=== PATIENT | female | born 1960 | race American Indian/Alaskan Native ===

== ENCOUNTER 2021-06-11 14:35 | Emergency (ER) | payer OTHER ==
[2021-06-11 16:31] VITALS: BP 214/81
--- NOTE | 2021-06-11 16:33 | Emergency Department Report ---
ED General Adult HPI - General Chief complaint: Extremity Injury, Lower Stated complaint: HIP PAINS Time Seen by Provider: 06/11/21 16:13 Source: patient Mode of arrival: Ambulatory Limitations: No Limitations - History of Present Illness Initial comments: 61-year-old female patient with history of hypertension presents to the emergency department with complaints of left hip pain starting 2 days ago. No preceding fall, trauma, or injury. Pain radiates down the lateral aspect of the left lower extremity to the ankle. Patient experienced similar symptoms at one point many years ago. Patient currently takes Meloxicam for chronic knee pain. Patient states this medication has not helped with her hip pain. Patient does not have a local primary care provider. Denies headache, neck pain, back pain, paresthesias, numbness, weakness. Denies all other complaints at this time. - Related Data Previous Rx's Medication Instructions Recorded Last Taken Type Lidocaine [Lidoderm] 1 each TP BID #20 adh..patch 06/11/21 Unknown Rx Naproxen 250 mg PO BID #20 tablet 06/11/21 Unknown Rx Allergies Allergy/AdvReac Type Severity Reaction Status Date / Time No Known Allergies Allergy Verified 06/11/21 15:20 ED Review of Systems ROS: Stated complaint: HIP PAINS Other details as noted in HPI Other: CARDIOVASCULAR: Negative for chest pain. PULMONARY: Negative for dyspnea. GASTROINTESTINAL: Negative for abdominal pain. MUSCULOSKELETAL: Positive for left hip pain. NEUROLOGICAL: Negative for headache. INTEGUMENTARY: Negative for ecchymosis. ED Past Medical Hx - Medications Home Medications: Home Medications Medication Instructions Recorded Confirmed Last Taken Type Lidocaine [Lidoderm] 1 each TP BID #20 adh..patch 06/11/21 Unknown Rx Naproxen 250 mg PO BID #20 tablet 06/11/21 Unknown Rx ED Physical Exam - General Limitations: No Limitations - Other Other exam information: General: Awake, appropriately interactive, no acute distress. Neck: Supple. Full range of motion intact. No cervical spine tenderness. Cardiovascular: Regular rate and rhythm. (+) murmur heard best at left sternal border. Normal peripheral perfusion. Pulmonary: No respiratory distress. Clear to auscultation bilaterally. Patient is speaking normally without use of accessory muscles. Skin: No apparent rashes or lesions. Neurological: No facial asymmetry. Speech is clear. Follows commands. Patient is alert and oriented. Musculoskeletal: Patient reports pain throughout the left gluteus and left hip radiating down the lateral aspect of the left lower extremity without reproducible tenderness on palpation. No obvious deformity or dislocation. Straight leg raise in the seated position is negative. No overlying warmth, erythema, ecchymosis. Distal neurovascular and motor/sensory function intact. Psych: Cooperative. Appropriate mood and affect. ED Course Vital Signs 06/11/21 15:17 Temperature 98.7 F Pulse Rate 70 Respiratory 18 Rate Blood Pressure 211/65 [Left] O2 Sat by Pulse 96 Oximetry ED Medical Decision Making - Medical Decision Making Differential diagnosis including but not limited to: sprain, strain, fracture, contusion, dislocation, trochanteric bursitis, sciatica, avascular necrosis Patient presents to emergency department complaints of nontraumatic left hip pain. No fever, no tachycardia, no hypotension. Please see notes below regarding patient's blood pressure. Pain is reproducible with standing and walking. Suspect patient's pain is attributable to musculoskeletal causes. No clinical indication for further diagnostic work-up on an emergent basis at this time. Patient will be discharged home with appropriate symptomatic treatment and referred to both primary care provider as well as business office specialist for close outpatient follow-up. Patient expressed understanding and is agreeable to plan of care. Lifestyle modifications discussed. Strict return precautions provided. Of note, patient's blood pressure was noted to be elevated in the emergency department. Patient has a prior history of hypertension. She is compliant with her blood pressure medications. Specifically, the patient denies chest pain, shortness of breath, palpitations, syncope, headache, vision changes. Neurological exam is nonfocal and remainder of vital signs are stable. No clinical indication for further diagnostic work-up and/or emergent administration of antihypertensive medication at this time per ACEP asymptomatic hypertension guidelines. Patient has been referred to primary care provider for blood pressure recheck. Lifestyle modifications recommended. Steroids withheld due to patient's blood pressure. NSAID dose adjusted to account for u nderlying hypertension. Critical care attestation.: If time is entered above; I have spent that time in minutes in the direct care of this critically ill patient, excluding procedure time. ED Disposition Clinical Impression: Left hip pain, Elevated blood pressure reading, History of hypertension Disposition: HOME / SELF CARE / HOMELESS Is pt being admited?: No Does the pt Need Aspirin: No Condition: Stable Instructions: Hip Pain, Hypertension, Adult, [id number] Additional Instructions: Take Tylenol every 4 hours as needed for pain. Take Naprosyn twice daily with food as needed for pain. Discontinue Meloxicam while taking this medication. Apply Lidoderm patches to affected areas as needed for pain. Apply heat to affected area as needed for pain. Continue blood pressure medications as previously prescribed. Reduce your dietary sodium intake. Follow-up with primary care provider and orthopedics this week. Call tomorrow to schedule an appointment. See referral information below. Ask your business office specialist to help you arrange physical therapy. Ask your primary care provider to follow-up on your blood pressure as well as your heart murmur. Return to the emergency department immediately for new or worsening symptoms. Specifically, return to the emergency department immediately for headache, chest pain, shortness of breath, loss of consciousness, numbness, weakness, paralysis, or any other concerns. Prescriptions: Lidocaine [Lidoderm] 1 each TP BID #20 adh..patch Naproxen 250 mg PO BID #20 tablet Referrals: SYBIL ZIMMERMAN MD [Staff Physician] - 3-5 Days [facility] [Provider Group] - 3-5 Days SHARON RANDALL MD [Staff Physician] - 3-5 Days Forms: Work/School Release Form(ED) Time of Disposition: 16:44
== END 2021-06-11 17:18 | disposition home or self-care (01) ==
LOC: ED 14:35
DX: M25.552 Pain in left hip (principal); R03.0 Elevated blood-pressure reading, without diagnosis of hypertension; I10 Essential (primary) hypertension; Z79.899 Other long term (current) drug therapy
CPT/HCPCS: 99282

== ENCOUNTER 2021-06-28 09:59 | Emergency (ER) | payer SELFPAY ==
[2021-06-28 10:19] VITALS: BP 214/92
--- NOTE | 2021-06-28 10:37 | Emergency Department Report ---
ED Extremity Problem HPI - General Chief complaint: Extremity Problem,Nontraumatic Stated complaint: NUMBNESS IN LT LEG INTO FOOT CANT WALK Time Seen by Provider: 06/28/21 10:27 Source: patient Mode of arrival: Ambulatory Limitations: No Limitations - History of Present Illness Initial comments: Patient presents with a 3-week history of left leg pain. She had been seen here and told that this was sciatica. She is having increasing pain in the lateral aspect of the left ankle. She came back today because the medication represcribed were not working. She states that we give her Naprosyn and a patch. That does not help. She is still complaining of pain that starts in the left hip, radiates down the lateral aspect and posterior aspect the left leg, and seems to be worse in the lateral aspect of the left ankle. This is just proximal to the malleolus. There is no direct trauma. She has had no fevers or chills per there is no cough congestion. She has no chest pain. There has not been any swelling. She has no calf pain. Patient has had no history of recent travel. The pain is described as an aching and burning pain. She has no other complaints. She has never had symptoms like this before. - Related Data Previous Rx's Medication Instructions Recorded Last Taken Type Lidocaine [Lidoderm] 1 each TP BID #20 adh..patch 06/11/21 Unknown Rx Diclofenac Submicronized 35 mg PO TID #20 capsule 06/28/21 Unknown Rx [Diclofenac] Allergies Allergy/AdvReac Type Severity Reaction Status Date / Time No Known Allergies Allergy Verified 06/11/21 15:20 ED Review of Systems ROS: Stated complaint: NUMBNESS IN LT LEG INTO FOOT CANT WALK Other details as noted in HPI Comment: All other systems reviewed and negative Constitutional: denies: fever ENT: denies: throat pain Respiratory: denies: cough Cardiovascular: denies: chest pain Endocrine: denies: unexplained weight gain Gastrointestinal: denies: abdominal pain Genitourinary: denies: dysuria Musculoskeletal: denies: back pain Skin: denies: rash Neurological: denies: weakness, numbness Hematological/Lymphatic: denies: easy bruising ED Past Medical Hx - Past Medical History Previous Medical History?: Yes Hx Hypertension: Yes Hx Asthma: Yes Additional medical history: Sciatic nerve problems - Surgical History Past Surgical History?: No - Family History Family history: no significant - Social History Smoking Status: Never Smoker - Medications Home Medications: Home Medications Medication Instructions Recorded Confirmed Last Taken Type Lidocaine [Lidoderm] 1 each TP BID #20 adh..patch 06/11/21 Unknown Rx Diclofenac Submicronized 35 mg PO TID #20 capsule 06/28/21 Unknown Rx [Diclofenac] ED Physical Exam - General Limitations: No Limitations, Other (Pulse ox was noted and normal. She is not hypoxic.) General appearance: alert, in no apparent distress - Head Head exam: Present: atraumatic, normocephalic, normal inspection - Eye Eye exam: Present: normal appearance, EOMI. Absent: scleral icterus - ENT ENT exam: Present: normal exam, normal external ear exam - Neck Neck exam: Present: normal inspection. Absent: meningismus - Respiratory Respiratory exam: Absent: respiratory distress - Cardiovascular Cardiovascular Exam: Absent: JVD - Extremities Exam Extremities exam: Present: normal capillary refill, other (There is tenderness with palpation over the left distal fibula. The malleolus is not tender. There is no warmth, erythema, edema, or crepitus. There is no other extremity tenderness. She states that she does have pain with palpation over the left sacroiliac joint.). Absent: pedal edema - Back Exam Back exam: Absent: CVA tenderness (R), CVA tenderness (L) - Neurological Exam Neurological exam: Present: alert, oriented X3, normal gait. Absent: CN II-XII intact, motor sensory deficit - Psychiatric Psychiatric exam: Present: normal affect, normal mood - Skin Skin exam: Present: warm, dry ED Course Vital Signs 06/28/21 10:17 Temperature 98.4 F Pulse Rate 77 Respiratory 16 Rate Blood Pressure 214/92 [Left] O2 Sat by Pulse 97 Oximetry - Reevaluation(s) Reevaluation #1: 06/28/21 10:36 X-ray was ordered. Reevaluation #2: 06/28/21 11:02 Radiographs were reviewed. These are normal. Patient was discharged. Glucose was noted. ED Medical Decision Making - Radiology Data Radiology results: image reviewed interpreted by me: Ankle x-ray showed no evidence of acute fracture or dislocation. There is no lytic lesion in the bone. There is no soft tissue swelling. These appear to be normal by my interpretation. - Medical Decision Making Patient presents secondary to left leg pain and left ankle pain. She was con cerned for some sort of bony problem. Radiographically, there is no lytic lesion. There is no pathologic fracture. She was aware that the x-rays would not show soft tissues. Regardless, there is no soft tissue swelling. Etiology for the worsening pain in the left lateral leg lower to the knee is not known. Certainly, there is no trauma. She has no fracture or dislocation. There is no warmth erythema to suggest infection. This is not in the calf area or muscular area. I do not believe this represents DVT clinically. She was treated symptomatically and referred to a PCP for recheck. Her blood pressure was elevated and she was aware. Critical Care Time: No Critical care attestation.: If time is entered above; I have spent that time in minutes in the direct care of this critically ill patient, excluding procedure time. ED Disposition Clinical Impression: Left leg pain Disposition: HOME / SELF CARE / HOMELESS Is pt being admited?: No Condition: Stable Instructions: How to Use Cold Therapy, Pain Without a Known Cause Additional Instructions: Try ice and heat. Return for problems. Follow-up with a regular doctor. If you do not have a regular doctor, follow-up with the referral physician. Return for problems. Prescriptions: Diclofenac Submicronized [Diclofenac] 35 mg PO TID #20 capsule Referrals: PRIMARY CAREMD [Referring] - 3-5 Days RYLAN JOSEPH MD [Staff Physician] - 3-5 Days
--- NOTE | 2021-06-28 11:15 | XRay Report ---
LEFT ANKLE 3 VIEW(S) INDICATION / CLINICAL INFORMATION: lateral pain x3w COMPARISON: None available. FINDINGS: BONES / JOINT(S): No acute fracture or subluxation. Mild subchondral cystic change of the lateral pablo ar dome could be degenerative versus posttraumatic. SOFT TISSUES: Mild swelling around the ankle is nonspecific. ADDITIONAL FINDINGS: None. Signer Name: Conor Marroquin MD Signed: 06/28/2021 11:11 AM Workstation Name: [id number]
== END 2021-06-28 11:35 | disposition home or self-care (01) ==
LOC: ED 09:59
DX: M79.605 Pain in left leg (principal); M25.552 Pain in left hip; I10 Essential (primary) hypertension; J45.909 Unspecified asthma, uncomplicated; Z79.899 Other long term (current) drug therapy
CPT/HCPCS: 82962; 99284